=== PATIENT | female | born 1995 | race Caucasian/White ===

== ENCOUNTER 2016-06-22 13:37 | Outpatient (CLI) | payer OTHER ==
--- NOTE | 2016-06-22 15:10 | DIAGNOSTIC IMAGING REPORT ---
PROCEDURE: US OB 1ST TRIMESTER W/TRANSVAG INDICATION: Uncertain dates, initial encounter TECHNIQUE: Allen scale, color, and spectral Doppler transabdominal and endovaginal sonographic images of the first trimester gravid uterus were obtained. COMPARISON: None. FINDINGS: TRANSABDOMINAL SCANS: Single intrauterine gestational sac with pole. Normal left ovary. Closed cervix measures 4.5 cm. TRANSVAGINAL SCANS: Single intrauterine gestational sac with yolk sac and pole which measures 1.7 cm, 8 weeks 1 day. TYSON 01/31/2017. Heart rate 171 bpm. Normal right ovary . IMPRESSION: 1. Single live intrauterine 8 weeks 1 day 2. TYSON 01/31/2017
== END 2016-06-22 23:00 ==
LOC: US SRH 13:37
DX: Z34.91 Encounter for supervision of normal pregnancy, unspecified, first trimester (principal); Z3A.08 8 weeks gestation of pregnancy

== ENCOUNTER 2016-09-18 14:42 | Outpatient (CLI) | payer OTHER ==
--- NOTE | 2016-09-18 18:02 | DIAGNOSTIC IMAGING REPORT ---
PROCEDURE: US OB DETAILED ANATOMIC INDICATION: ANATOMY TECHNIQUE: Allen scale, color, and spectral Doppler images of the second trimester gravid uterus were obtained. COMPARISON: OB ultrasound 06/22/2016 FINDINGS: A single living intrauterine is in vertex presentation. There is regular cardiac activity at a rate of 149 beats per minute. The placenta is anterior and away from the internal cervical os. The cervix is closed measuring approximately 4.4 cm in length. The amniotic fluid volume is subjectively normal. Biparietal diameter 4.9 cm at 20 weeks and 5 days Head circumference 18.3 cm at 20 weeks and 5 days Abdominal circumference 15.5 cm at 20 weeks and 5-day Femur length 3.5 cm at 20 weeks and 6 days Head to abdominal circumference ratio and femur length to abdominal circumference ratios are normal. Estimated weight 376 g Composite gestational age 20 weeks and 5 days, TYSON 01/31/2017 There was visualization of a number of normal structures including the intracranial contents, facial features, nuchal region, spine, four-chamber heart and to the extent that could be visualized, diaphragm, fluid-filled stomach, kidneys, abdomen, urinary bladder, upper and lower extremities, and genitals. A three-vessel umbilical cord, normal and placental cord insertion sites were seen. The cardiac outflow tracts not well seen. Recommend repeat study in 1 week. IMPRESSION: 1. Single living intrauterine with a composite gestational age of 20 weeks and 5 days, TYSON 01/31/2017 2. Cardiac outflow tracts not well seen. Recommend repeat study in 1 week.
== END 2016-09-18 23:00 ==
LOC: US SRH 14:42
DX: Z34.92 Encounter for supervision of normal pregnancy, unspecified, second trimester (principal); Z3A.20 20 weeks gestation of pregnancy